=== PATIENT | male | born 1960 | race Caucasian/White ===

== ENCOUNTER 2018-03-24 15:17 | Emergency (ER) | payer OTHER ==
[~2018-03-24] VITALS: Ht 160 cm; Wt 127.0 kg
[2018-03-24 15:46] VITALS: BP 157/94
== END 2018-03-24 15:33 | disposition left against medical advice (07) ==
LOC: ER 15:17
DX: Z04.1 Encounter for examination and observation following transport accident (principal)
CPT/HCPCS: 93005